=== PATIENT | female | born 2000 ===

== ENCOUNTER 2024-02-05 18:48 | Outpatient (REF) | payer SELFPAY ==
--- NOTE | 2024-02-05 11:30 | PAPFT_PTH ---
PATIENT: Cara Jose LOC: [facility]#:[id number] AGE/SX: 23/F ROOM: RE02/05/[address]: Roxana Young : 2000 BED: DIS: 02/05/2024 SPEC #: [id number] RECD: 02/06/24 13:30 STATUS: [place] REQ #: [id number] KAISER: 02/05/24 11:[address]: Elaine Young DEPT: [facility] Cytology RECD BY: Yu Martinez ENTERED: 02/06/24 13:30 SP TYPE: PAPFT OTHR DR: Unknown,Unknown Tissues: 1 - CX/ENDOCX FOR PAP SMEARS Procedures: PAP THIN PREP/[facility] Screening Comments: [id number] (CHLAMYDIA/GC)
[2024-02-07 12:44] LABS: Chlamydia Result Negative (Negative); GC Result Negative (Negative)
== END 2024-02-05 18:49 | disposition home or self-care (01) ==
LOC: NCHCN 18:48
PROVIDERS: Visit Provider Nurse Practitioner Family
DX: Z12.4 Encounter for screening for malignant neoplasm of cervix (principal); Z00.00 Encounter for general adult medical examination without abnormal findings
CPT/HCPCS: 87491; 87591; 88142; 87480; 87510; 87660

== ENCOUNTER 2025-03-24 18:28 | Outpatient (REF) | payer SELFPAY ==
--- NOTE | 2025-03-24 11:30 | PAPFT_PTH ---
PATIENT: Cara Jose LOC: [facility]#:[id number] AGE/SX: 24/F ROOM: RE03/24/[address]: Roxana Young : 2000 BED: DIS: 03/24/2025 SPEC #: [id number] RECD: 03/24/25 18:37 STATUS: JESSIE REQ #: [id number] KAISER: 03/24/25 11:[address]: Elaine Young DEPT: [facility] Cytology RECD BY: Yu Martinez ENTERED: 03/24/25 18:37 SP TYPE: PAPFT OTHR DR: Unknown,Unknown Tissues: 1 - CX/ENDOCX FOR PAP SMEARS Procedures: PAP THIN PREP/[facility] Screening Comments: [id number] (CHLAMYDIA/GC)
[2025-03-25 12:33] LABS: Chlamydia Result Negative (Negative); GC Result Negative (Negative)
== END 2025-03-24 18:29 | disposition home or self-care (01) ==
LOC: NCHCN 18:28
PROVIDERS: Visit Provider Nurse Practitioner Family
DX: Z12.4 Encounter for screening for malignant neoplasm of cervix (principal)
CPT/HCPCS: 87491; 87591; 88142